=== PATIENT | male | born 2000 | race Caucasian/White ===

== ENCOUNTER 2019-11-17 23:14 | Emergency (ER) | payer OTHER ==
[~2019-11-17] VITALS: Ht 167.6 cm; Wt 67.9 kg
--- NOTE | 2019-11-17 23:27 | PHYS DOC ---
Adult General HPI HPI 19 year old male brought in by EMS for status asthmatics Per EMS-- on arrival patient in severe respiratory distress. RR > 60 and O2 Sat < 60% Treated with Epi, Solumedrol, Duoneb and Albuterol X3. Review of Systems Review of Systems Constitutional: Denies fever or chills [] Eyes: Denies change in visual acuity, redness, or eye pain [] HENT: Denies nasal congestion or sore throat [] Respiratory: positive cough positive shortness of breath Cardiovascular: No additional information not addressed in HPI [] GI: Denies abdominal pain, nausea, vomiting, bloody stools or diarrhea [] : Denies dysuria or hematuria [] Musculoskeletal: Denies back pain or joint pain [] Integument: Denies rash or skin lesions [] Neurologic: Denies headache, focal weakness or sensory changes [] Endocrine: Denies polyuria or polydipsia [] All other systems were reviewed and found to be within normal limits, except as documented in this note. Physical Exam Physical Exam Constitutional: Well developed, well nourished, no acute distress, non-toxic appearance. [] HENT: Normocephalic, atraumatic, bilateral external ears normal, oropharynx moist, no oral exudates, nose normal. [] Eyes: PERRLA, EOMI, conjunctiva normal, no discharge. [] Neck: Normal range of motion, no tenderness, supple, no stridor. [] Cardiovascular:Heart rate regular rhythm, no murmur [] Lungs & Thorax: Bilateral breath sounds clear to auscultation [no wheezing] Abdomen: Bowel sounds normal, soft, no tenderness, no masses, no pulsatile masses. [] Skin: Warm, dry, no erythema, no rash. [] Back: No tenderness, no CVA tenderness. [] Extremities: No tenderness, no cyanosis, no clubbing, ROM intact, no edema. [] Neurologic: Alert and oriented X 3, normal motor function, normal sensory function, no focal deficits noted. [] Psychologic: Affect normal, judgement normal, mood normal. [] EKG EKG 0114 time Heart orellana 69 No Stemi No acute OH [] Radiology/Procedures Radiology/Procedures [] Impressions: normal chest xray Course & Med Decision Making Course & Med Decision Making Pertinent Labs and Imaging studies reviewed. (See chart for details) [] Prior to arrival patient was treated with epi DuoNeb and albuterol. ER patient was treated with museum 2 g potassium 40mEq PO and potassium 10mEq IV and 2L IV fluids. Patient was observed on room air with O2 sats of 100% 0200- Patient observed for 3hrs--- vital signs table. Patient continues to be 100% on room air. Patient discharged home on Rx medications. Dragon Disclaimer Dragon Disclaimer This electronic medical record was generated, in whole or in part, using a voice recognition dictation system. Departure Departure: Impression: Primary Impression: Asthma exacerbation Additional Impressions: Hypokalemia Renal insufficiency Disposition: HOME, SELF-CARE Condition: STABLE Patient Instructions: Asthma, Acute Bronchospasm, Dehydration, Adult, Hypokalemia Scripts Potassium Chloride (Potassium Chloride) 20 Meq Tablet.er 20 MEQ PO BID for 7 Days, #14 TAB.SR Prov: MELODY SMITH DO 11/18/19 Prednisone (PREDNISONE) 50 Mg Tablet 1 TAB PO DAILY, #5 TAB Prov: MELODY SMITH DO 11/18/19 Albuterol Sulfate (VENTOLIN HFA INHALER) 18 Gm Hfa.aer.ad 1 PUFF IH PRN Q4HRS PRN for FOR ASTHMA for 10 Days, #1 INHALER 0 Refills Prov: MELODY SMITH DO 11/18/19 Problem Qualifiers Primary Impression: Asthma exacerbation Asthma severity: severe Asthma persistence: unspecified Qualified Codes: J45.901 - Unspecified asthma with (acute) exacerbation MELODY SMITH DO Nov 17, 2019 23:27
[2019-11-17] MEDS ORDERED: MAGNESIUM SULFATE 2GM 50 ML IV ONE (23:30)
[2019-11-17] MEDS ORDERED: IV NORMAL SALINE 1,000ML 1,000 ML IV ONE (23:30)
--- NOTE | 2019-11-17 23:58 | RAD ---
Chest AP portable at 2323: Reason for examination: Short of breath. History of asthma. The heart size is normal. Mediastinum is unremarkable. Lung meza are clear. No acute bony abnormalities are seen. Impression: No acute cardiopulmonary disease. Electronically signed by: Mahogany Abel MD (11/17/2019 11:55 PM) [id number]
[2019-11-18 00:22] LABS: BASO # 0.1 x10^3/uL (0.0-0.2); BASO % 0 % (0-3); EOS # 0.6 x10^3/uL (0.0-0.7); EOS % 3 % (0-3); HEMATOCRIT 43.6 % (39.0-53.0); HEMOGLOBIN 15.2 g/dL (13.0-17.5); LYMPH # 3.3 x10^3/uL (1.0-4.8); LYMPH % 18 % (24-48); MEAN CORPUSCULAR HEMOGLOBIN 31 pg (25-35); MEAN CORPUSCULAR HGB CONC 35 g/dL (31-37); MEAN CORPUSCULAR VOLUME 88 fL (79-100); MONO % 6 % (0-9); NEUT # 13.7 x10^3uL (1.8-7.7); NEUT % 73 % (31-73); PLATELET COUNT 208 x10^3/uL (140-400); RED BLOOD COUNT 4.94 x10^6/uL (4.30-5.70); RED CELL DISTRIBUTION WIDTH 12.7 % (11.5-14.5); WHITE BLOOD COUNT 18.7 x10^3/uL (4.0-11.0)
[2019-11-18 00:23] LABS: ALBUMIN 4.3 g/dL (3.4-5.0); ALBUMIN/GLOBULIN RATIO 1.4 (1.0-1.7); CALCIUM 8.7 mg/dL (8.5-10.1); CREATININE 1.4 mg/dL (0.7-1.3); TOTAL BILIRUBIN 0.7 mg/dL (0.2-1.0); TOTAL PROTEIN 7.4 g/dL (6.4-8.2)
[2019-11-18] MEDS ORDERED: POTASSIUM CHLORIDE 10MEQ 100 ML IV SCH (00:45)
[2019-11-18] MEDS ORDERED: POTASSIUM CHLORIDE 20 MEQ TABLET.ER. PO ONE (00:45)
[2019-11-18] MEDS ORDERED: POTASSIUM CHLORIDE 20 MEQ IV ONE (00:49)
[2019-11-18] MEDS ORDERED: IV NORMAL SALINE 1,000ML 1,000 ML IV ONE (01:15)
[2019-11-18] MEDS ORDERED: PRED50TA PO (01:24)
[2019-11-18] MEDS ORDERED: POTA20TA83 PO (01:24)
[2019-11-18] MEDS ORDERED: ALBU2.5V8 IH (01:24)
[2019-11-18 01:51] VITALS: BP 139/70
[2019-11-18 02:10] LABS: % ATYL 16 % (0-0); % BANDS 1 % (0-9); % BASOS 1 % (0-3); % EOS 1 % (0-5); % LYMPHS 5 % (24-48); % MONOS 2 % (0-10); % SEGS 74 % (35-66)
[2019-11-18 02:11] LABS: PLT ESTIMATE ADEQUATE (ADEQUATE)
--- NOTE | 2019-11-18 09:32 | EKG ---
[address] [address] Test Date: 2019-11-18 Test Time: 01:14:35 Pat Name: GIACOMO ARMENTA Department: Room: Gender: M [employer]: : 2000 Requested By: MELODY SMITH Order Number: [id number] Reading MD: Measurements Intervals [place] Rate: 69 P: 52 ME: 172 QRS: 56 QRSD: 90 T: 37 QT: 376 QTc: 409 Interpretive Statements SINUS RHYTHM NO SPECIFIC ECG ABNORMALITIES RI6.01 No previous ECG available for comparison
[2019-11-20 11:20] LABS: POTASSIUM 2.3 mmol/L (3.5-5.1)
== END 2019-11-18 02:12 | disposition home or self-care (01) ==
LOC: ER 23:14
DX: J45.901 Unspecified asthma with (acute) exacerbation (principal); N28.9 Disorder of kidney and ureter, unspecified; E87.6 Hypokalemia
CPT/HCPCS: 36415; 71045; 80053; 85007; 85025; 93005; 96365; 96366; 96368; 99285; J3475; J3480; J7030

== ENCOUNTER 2020-04-01 21:25 | Emergency (ER) | payer OTHER ==
[~2020-04-01] VITALS: Ht 167.6 cm; Wt 68.0 kg
[~2020-04-01 21:25] MED LIST: ALBU2.5V8 IH; POTA-163 PO; PRED50TA PO
--- NOTE | 2020-04-01 21:29 | PHYS DOC ---
Past History Past Medical History: Anxiety, Asthma Past Surgical History: No Surgical History Alcohol Use: None General Adult HPI: HPI: "..I am having some asthma problems.. and it make me anxious.. The kids broke my machine and inhaler..."... I am just really tight tonight and wheezing a lot more..." Patient is a 19 year old male who presents with above hx and complaints of asthma exacerbation. Patient has never been intubated for his asthma attacks. Patient has never been admitted overnight for asthma attacks. Has had periodic exacerbations since age 3. Patient has approximately 3 asthma attacks a year that require visits to the emergency department or primary care. Patient does have rescue inhaler at home and breathing machine however they are broken bec ause the children were playing with the meds and equipment. Patient does not know his best peak flow. Patient does not smoke. States he does not vape. No recent travel. No specific ill contacts. No history immunosuppression. Has not had a Pneumovax. Does not normally get flu vaccination. Patient triggers tend to be smoke, humidity, grass, and seasonal allergies. 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 Patient does have a past history of anxiety disorder. Review of Systems: Review of Systems: Constitutional: Denies fever or chills Eyes: Denies change in visual acuity HENT: Denies nasal congestion or sore throat Respiratory: Complaints of non-productive cough and wheeze Cardiovascular: Denies chest pain or edema GI: Denies abdominal pain, nausea, vomiting, bloody stools or diarrhea : Denies dysuria Musculoskeletal: Denies back pain or joint pain Integument: Denies rash Neurologic: Denies headache, focal weakness or sensory changes Endocrine: Denies polyuria or polydipsia Lymphatic: Denies swollen glands Psychiatric: Denies depression Hx. of anxiety Heart Score: Risk Factors: Risk Factors: DM, Current or recent (<one month) smoker, HTN, HLP, family history of CAD, obesity. Risk Scores: Score 0 - 3: 2.5% MACE over next 6 weeks - Discharge Home Score 4 - 6: 20.3% MACE over next 6 weeks - Admit for Clinical Observation Score 7 - 10: 72.7% MACE over next 6 weeks - Early Invasive Strategies Family History: Family History: Noncontributory to presentation Current Medications: Current Meds: See nursing for home meds Allergies: Allergies: Allergies Coded Allergies Type Severity Reaction Last Updated Verified No Known Drug Allergies 11/17/19 No Physical Exam: PE: Constitutional: Well developed, well nourished, no acute distress, non-toxic appearance. [] HENT: Normocephalic, atraumatic, bilateral external ears normal, oropharynx moist, no oral exudates, nose swollen turbinates and clear rhinorrhea. Eyes: PERRLA, EOMI, conjunctiva normal, no discharge. [] Neck: Normal range of motion, no tenderness, supple, no stridor. [] Cardiovascular:Heart rate regular rhythm, no murmur [] Lungs & Thorax: Bilateral breath sounds equal apex with few scattered wheezes on auscultation [. Patient has] no intercostal retractions. Sats are 98 to 99% on room air Abdomen: Bowel sounds normal, soft, no tenderness, no masses, no pulsatile masses. [] Skin: Warm, dry, no erythema, no rash. [] Back: No tenderness, no CVA tenderness. [] Extremities: No tenderness, no cyanosis, no clubbing, ROM intact, no edema. [] Neurologic: Alert and oriented X 3, normal motor function, normal sensory function, no focal deficits noted. [] Psychologic: Affect anxious, judgement normal, mood normal. [] EKG: EKG: [] Radiology/Procedures: Radiology/Procedures: [] Course & Med Decision Making: Course & Med Decision Making Pertinent Labs and Imaging studies reviewed. (See chart for details) Patient take prednisone 50 mg a day for 5 days. Patient use MDI 2 puffs 4 times a day. Recommend patient get Pneumovax and flu vaccination this fall. Patient return if any concerns. Patient follow-up primary care. Recommend patient document peak flows. Patient return if any concerns. Impression: 1. Asthma exacerbation [] Dragon Disclaimer: Dragon Disclaimer: This electronic medical record was generated, in whole or in part, using a voice recognition dictation system. Departure Departure: Disposition: 01 HOME/RESIDENCE PRIOR TO ADM Condition: STABLE Referrals: PCP,NO (PCP) Scripts Prednisone (PREDNISONE) 50 Mg Tablet 50 MG PO DAILY for asthma exacerbation for 5 Days, #5 TAB Prov: RON TORRES MD 04/01/20 Justification of Admission: Justification of Admission: Justification of Admission Dx: N/A Dragon Disclaimer This chart was dictated in whole or in part using Voice Recognition software in a busy, high-work load, and often noisy Emergency Department environment. It may contain unintended and wholly unrecognized errors or omissions. RON TORRES MD Apr 01, 2020 21:29
[2020-04-01] MEDS ORDERED: predniSONE 10 MG TABLET PO ONE (21:30)
[2020-04-01] MEDS ORDERED: ALBUTEROL SULFATE 8GM INHALER. INH ONE (21:30)
[2020-04-01 22:00] VITALS: BP 130/79
[2020-04-01] MEDS ORDERED: PRED50TA PO (22:08)
== END 2020-04-01 22:15 | disposition home or self-care (01) ==
LOC: ER 21:25
DX: J45.901 Unspecified asthma with (acute) exacerbation (principal); F41.9 Anxiety disorder, unspecified
CPT/HCPCS: 94640; 99283; J7512

== ENCOUNTER 2020-06-17 20:54 | Emergency (ER) | payer OTHER ==
[~2020-06-17] VITALS: Ht 167.6 cm; Wt 64.2 kg
--- NOTE | 2020-06-17 21:29 | PHYS DOC ---
Past History Past Medical History: Anxiety, Asthma Past Surgical History: No Surgical History Alcohol Use: None Adult General Chief Complaint Chief Complaint: SHORTNESS OF BREATH [facility] HPI Patient is a [id number]-year-old male who presents with asthma exacerbation. Patient reports he has been an asthmatic for most of his life, states he has an inhaler, has been using it however has had some increased need for use of it for last couple days. States he has never been hospitalized overnight for his asthma however he had been seen in this facility approximately 1 month ago for similar. States he does have an albuterol inhaler at home also had a Advair however he has been out for approximately 1 month. Patient denies fever, denies nausea, does state he has been coughing to the point that would cause him to vomit earlier today. States his immunizations are up-to-date. Denies pain. Review of Systems Review of Systems Constitutional: Denies fever or chills [] Eyes: Denies change in visual acuity, redness, or eye pain [] HENT: Denies nasal congestion or sore throat [] Respiratory: Reports cough and shortness of breath, states it feels like his typical asthma exacerbation, states cough is dry, normal cough Cardiovascular: No additional information not addressed in HPI [] GI: Denies abdominal pain, nausea, bloody stools or diarrhea, states his coughing has caused him to have emesis earlier today. [] : Denies dysuria or hematuria [] Musculoskeletal: Denies back pain or joint pain [] Integument: Denies rash or skin lesions [] Neurologic: Denies headache, focal weakness or sensory changes [] Endocrine: Denies polyuria or polydipsia [] All other systems were reviewed and found to be within normal limits, except as documented in this note. Allergies Allergies Allergies Coded Allergies Type Severity Reaction Last Updated Verified No Known Drug Allergies 11/17/19 No Physical Exam Physical Exam Constitutional: Well developed, well nourished, no acute distress, non-toxic appearance. [] HENT: Normocephalic, atraumatic, bilateral external ears normal, oropharynx moist, no oral exudates, nose normal. [] Eyes: PERRLA, EOMI, conjunctiva normal, no discharge. [] Neck: Normal range of motion, no tenderness, supple, no stridor. [] Cardiovascular:Heart rate regular rhythm, no murmur [] Lungs & Thorax: Bilateral breath sounds clear to auscultation, conversational, no noted air hunger, no accessory muscle use. [] Abdomen: Bowel sounds normal, soft, no tenderness, no masses, no pulsatile masses. [] Skin: Warm, dry, no erythema, no rash. [] Back: No tenderness, no CVA tenderness. [] Extremities: No tenderness, no cyanosis, no clubbing, ROM intact, no edema. [] Neurologic: Alert and oriented X 3, normal motor function, normal sensory function, no focal deficits noted. [] Psychologic: Affect normal, judgement normal, mood normal. [] EKG EKG [] Radiology/Procedures Radiology/Procedures [] Heart Score Risk Factors: Risk Factors: DM, Current or recent (<one month) smoker, HTN, HLP, family history of CAD, obesity. Risk Scores: Risk Factors: DM, Current or recent (<one month) smoker, HTN, HLP, family history of CAD, obesity. Course & Med Decision Making Course & Med Decision Making Pertinent Labs and Imaging studies reviewed. (See chart for details) [] Feeling better today, patient reports he feels a lot better. Discussed importance of following up with primary care with patient, states he will. Will provide Advair prescription as a long-term management for his asthma flareups. Patient with no further questions or concerns at this time Dragon Disclaimer Dragon Disclaimer This electronic medical record was generated, in whole or in part, using a voice recognition dictation system. Departure Departure: Impression: Primary Impression: Asthma exacerbation Disposition: 01 DC HOME SELF CARE/HOMELESS Condition: STABLE Referrals: PCP,NO (PCP) Patient Instructions: Asthma Attacks, Prevention, Asthma, Adult, [id number] Additional Instructions: As we discussed, continue to use your inhaler as prescribed. You were given a prescription for your Advair again, use this twice a day to reduce your asthma flare-up frequency. Try to avoid your asthma triggers and flares. Get back into your primary care office for long-term management of your asthma. Scripts Fluticasone/Salmeterol (ADVAIR 100-50 DISKUS) 1 Each Disk.w.dev 1 PUFF IH BID for asthma, #1 INHALER 0 Refills Prov: MEGAN SALDANA APRN 06/17/20 Problem Qualifiers Primary Impression: Asthma exacerbation Asthma severity: mild Asthma persistence: intermittent Qualified Codes: J45.21 - Mild intermittent asthma with (acute) exacerbation MEGAN SALDANA APRN Jun 17, 2020 21:29
[2020-06-17] MEDS ORDERED: IPRATRPIUM/ALBUTEROL 0.5/2.5MG 3 ML NEBU. NEB ONE (21:30)
[2020-06-17] MEDS ORDERED: predniSONE 20 MG TABLET PO ONE (21:30)
[2020-06-17 21:48] VITALS: BP 115/57
[2020-06-17] MEDS ORDERED: FLUT1DIS IH (22:05)
== END 2020-06-17 22:09 | disposition home or self-care (01) ==
LOC: ER 20:54
DX: J45.21 Mild intermittent asthma with (acute) exacerbation (principal); F41.9 Anxiety disorder, unspecified
CPT/HCPCS: 94640; 99283; J7512